=== PATIENT | female | born 1955 | race Caucasian/White ===

== ENCOUNTER 2024-05-29 09:11 | Emergency (ER) | payer MEDICARE, SELFPAY ==
--- NOTE | 2024-05-29 10:10 | PC.NURSE ---
Call pt from lobby and outside no answer @[phone]
--- NOTE | 2024-05-29 10:25 | PC.NURSE ---
Call pt from lobby and outside no answer @[phone]
--- NOTE | 2024-05-29 10:52 | PC.NURSE ---
Call pt from lobby and outside no answer @[phone]
--- NOTE | 2024-05-29 16:32 | PD.EDADDENDU ---
Emergency Room Addendum Addendum Narrative: PT left before treatment. Not seen by me
== END 2024-05-29 10:52 | disposition left against medical advice (07) ==
LOC: SERX 11:06
PROVIDERS: Emergency Provider Internal Medicine Critical Care Medicine
DX: Z53.21 Procedure and treatment not carried out due to patient leaving prior to being seen by health care provider (principal)